=== PATIENT | female | born 1990 | race African-American/Black ===

== ENCOUNTER 2016-10-08 00:40 | Emergency (ER) | payer OTHER ==
[~2016-10-08] VITALS: Ht 167.6 cm; Wt 110.0 kg
[~2016-10-08 00:40] MED LIST: ACET325T33 PO; ALBU8.5H3 INH; AZIT250T94 PO; BEN25 PO; CEPH-443 PO; CIPR500T4 PO; DOCU-144 PO; GUAI120S26 PO; IBUP800T25 PO; NITR-58 PO; PRED20TA PO; PRENAT PO
[2016-10-08 00:43] VITALS: Ht 167.6 cm; Wt 110.0 kg
--- NOTE | 2016-10-08 01:38 | ERD ---
ER Documentation Chief Complaint Date/Time DATE: 10/08/16 TIME: 01:36 Chief Complaint chest pain x 4 days increases with movement and breath HPI 26-year-old female presents to emergency department for complaint of left-sided chest pain for 4 days, patient describes it as sharp pain, 6/10 scale, is worse with taking a deep breath. Patient is a smoker. Patient denies any dizziness or shortness of breath. Patient denies any dyspnea on exertion or dyspnea on lying down. Patient denies any palpitations or irregular heartbeat. Patient denies any cough or wheezing. ROS All systems reviewed and are negative except as per history of present illness. Medications Home Meds Active Scripts Nitrofurantoin Monohyd Macrocr* (Macrobid*) 100 Mg Capsr, 100 MG PO BID for 7 Days, CAP Prov:WILMA RICHARDSON PA-C 05/02/16 Ciprofloxacin Hcl* (Ciprofloxacin Hcl*) 500 Mg Tablet, 500 MG PO BID for 3 Days , TAB Prov:RENNY VOGEL 03/18/16 Acetaminophen* (Tylenol*) 325 Mg Tablet, 2 TAB PO Q8 Y for PAIN AND OR ELEVATED TEMP, #30 TAB Prov:RHONDA STEVENS PA-C 03/13/16 Albuterol Sulfate* (Proair HFA*) 8.5 Gm Hfa.aer.ad, 2 PUFF INH Q4, #1 INHALER Prov:WILMA RICHARDSON PA-C 03/05/16 Prednisone* (Prednisone*) 20 Mg Tab, 40 MG PO DAILY for 4 Days, TAB Prov:WILMA RICHARDSON PA-C 03/05/16 Diphenhydramine Hcl* (Benadryl*) 25 Mg Cap, 25 MG PO QHS, #30 CAP Prov:RHONDA STEVENS PA-C 03/04/16 Ibuprofen* (Motrin*) 800 Mg Tab, 800 MG PO Q6, #30 TAB Prov:RHONDA STEVENS PA-C 03/04/16 Wnpiiaxjcju-F-Wmryegyaot Hb* (Guaifenesin* DM Syrup) 120 Ml Syrup, 10 ML PO Q4H Y for COUGH, #120 ML Prov:RHONDA STEVENS PA-C 03/04/16 Azithromycin* (Zithromax*) 250 Mg Tablet, 250 MG PO .ZPACK DIRECTED, #6 TAB TAKE 500 MG (2 TABS) THE FIRST DAY THEN 250 MG (1 TAB) DAYS 2-5 Prov:RHONDA STEVENS PA-C 03/04/16 Docusate Sodium* (Colace*) 100 Mg Capsule, 100 MG PO TID, #30 CAP Prov:RADHA ENRIQUEZ PA-C 08/07/15 Cephalexin* (Keflex*) 500 Mg Capsule, 500 MG PO QID for 7 Days, CAP Prov:RADHA ENRIQUEZ PA-C 08/07/15 Reported Medications Multivit/Min/Fol Ac/Iron/Pren* ( S*) 1 Tab Tab, 1 TAB PO DAILY, TAB 05/04/15 Allergies Allergies: Coded Allergies: No Known Allergy (Unverified , 05/02/16) PMhx/Soc Medical and Surgical Hx: pt denies Medical Hx, pt denies Surgical Hx History of Surgery: No Anesthesia Reaction: No Hx Neurological Disorder: No Hx Respiratory Disorders: No Hx Cardiac Disorders: No Hx Psychiatric Problems: No Hx Miscellaneous Medical Probl: No Hx Alcohol Use: No Hx Substance Use: No Hx Tobacco Use: Yes (1/2 ppd) Smoking Status: Current every day smoker FmHx Family History: No coronary disease, No diabetes, No other Physical Exam Vitals Vital Signs Date Time Temp Pulse Resp B/P Pulse Ox O2 Delivery O2 Flow Rate FiO2 10/08/16 00:43 97.7 94 20 136/86 98 Physical Exam GENERAL: The patient is well developed and appropriate for usual state of health, in no apparent distress. CHEST: Clear to auscultation bilaterally. There are no rales, wheezes or rhonchi. HEART: Regular rate and rhythm. No murmurs, clicks, rubs or gallops. No S3 or S4. ABDOMEN: Soft, nontender and nondistended. Good bowel sounds. No rebound or guarding. No gross peritonitis. No gross organomegaly or masses. No Becker sign or McBurney point tenderness. BACK: No midline or flank tenderness. EXTREMITIES: Equal pulses bilaterally. There is no peripheral clubbing, cyanosis or edema. No focal swelling or erythema. Full range of motion. Grossly neurovascularly intact. NEURO: Alert and oriented. Cranial nerves 2-12 intact. Motor strength in all 4 extremities with 5/5 strength. Sensation grossly intact. Normal speech and gait. SKIN: There is no apparent rash or petechia. The skin is warm and dry. HEMATOLOGIC AND LYMPHATIC: There is no evidence of excessive bruising or lymphedema. No gross cervical, axillary, or inguinal lymphadenopathy. Result Diagram: 10/08/16 0140 10/08/16 0140 Results 24 hrs Laboratory Tests Test 10/08/16 01:40 White Blood Count 9.310^3/ul Red Blood Count 4.2210^6/ul Hemoglobin 12.6g/dl Hematocrit 34.5% Mean Corpuscular Volume 81.8fl Mean Corpuscular Hemoglobin 29.9pg Mean Corpuscular Hemoglobin Concent 36.5g/dl Red Cell Distribution Width 13.2% Platelet Count 01267^3/UL Mean Platelet Volume 11.1fl Neutrophils % 55.7% Lymphocytes % 28.9% Monocytes % 8.2% Eosinophils % 5.9% Basophils % 1.0% Nucleated Red Blood Cells % 0.0/100WBC Neutrophils # 5.210^3/ul Lymphocytes # 2.710^3/ul Monocytes # 0.810^3/ul Eosinophils # 0.610^3/ul Basophils # 0.110^3/ul Nucleated Red Blood Cells # 0.010^3/ul D-Dimer 1725.82ng/ml D-Dimer Comment Sodium Level 142mmol/L Potassium Level 3.5mmol/L Chloride Level 103mmol/L Carbon Dioxide Level 26mmol/L Anion Gap 17 Blood Urea Nitrogen 14mg/dl Creatinine 0.70mg/dl Glucose Level 101mg/dl Calcium Level 9.4mg/dl Total Bilirubin 0.2mg/dl Direct Bilirubin 0.00mg/dl Indirect Bilirubin 0.2mg/dl Aspartate Amino Transf (AST/SGOT) 18IU/L Alanine Aminotransferase (ALT/SGPT) 20IU/L Alkaline Phosphatase 145IU/L Troponin I < 0.012ng/ml Total Protein 7.6g/dl Albumin 4.2g/dl Globulin 3.40g/dl Albumin/Globulin Ratio 1.23 Current Medications Medications (Trade) Dose Ordered Sig/Erika Route PRN Reason Start Time Stop Time Status Last Admin Dose Admin Sodium Chloride (NS) 100 ml @ ud STK-MED ONCE .ROUTE 10/08/16 04:11 10/08/16 04:12 DC 10/08/16 04:29 Iohexol (Omnipaque 300mg/ ml) 150 ml STK-MED ONCE .ROUTE 10/08/16 04:11 10/08/16 04:12 DC 10/08/16 04:29 EKG was done, read by me and is normal sinus rhythm at a rate of 78, normal axis ,w/ nonspecific T-wave abnormality but no other changes indicates any cardiac emergencies at this time. Patient's EKG was also reviewed by . Impression: no acute findings on EKG PROCEDURE: XR Chest. CLINICAL INDICATION: Chest pain. TECHNIQUE: Single frontal chest x-ray. COMPARISON: 05/02/2016 FINDINGS: The cardiomediastinal silhouette is unremarkable. The lungs are clear. No focal infiltrate is seen. There is no pleural effusion. There is no pneumothorax. The osseous structures are unremarkable. IMPRESSION: 1. No active disease. RPTAT: HMVK .Chai King MD, MD Date Time Electronically viewed and signed by .Chai King MD, on 10/08/2016 02:24 .K/ CC: CELESTINO YATES NP PROCEDURE: CT angiogram chest. CLINICAL INDICATION: Shortness of breath. TECHNIQUE: CT angiogram of the chest was performed utilizing axial images with reconstructions in sagittal and coronal planes following the intravenous administration of 100 cc Omnipaque 350 contrast. The administered radiation dose is CTDI 19 mGy, DLP 747 mGy-cm. COMPARISON: No pertinent prior examinations are submitted for comparison. FINDINGS: Pulmonary angiogram: The pulmonary arteries are adequately opacified to the level of the segmental pulmonary artery branches. There is minimal respiratory motion artifact. There is no evidence of pulmonary embolus. Aortogram: There is no evidence of aortic dissection or aneurysm. Major branches of the aorta are patent. Chest: There is some mild atelectasis at the left lung base. No pleural effusions are seen. The tracheobronchial tree is unremarkable. The heart is normal in size. No pericardial effusion is seen. There is no evidence of mediastinal or hilar adenopathy. Visualized Upper abdomen: Unremarkable. Osseous structures: There is mild dextroscoliosis of the thoracic spine. IMPRESSION: No evidence of pulmonary embolus. RPTAT: HIKT .Husam De Paz MD, Date Time Electronically viewed and signed by .Husam De Paz MD, on 10/08/2016 04:41 .T/ CC: CELESTINO YATES NP Procedures/MDM Medical Decision Making: No symptoms such as a nonspecific at this time, most likely musculoskeletal pain. There is low suspicion for cardiopulmonary emergencies at this time. Patient has low risk factors. EKG is normal, there is no changes in the EKG that indicates cardiac emergencies. Chest X-ray does not show cardiopulmonary emergencies at this time. There is low suspicion for aortic aneurysm, myocardial infarction, pneumothorax, pleural effusion, pulmonary embolism, or any other cardiopulmonary emergencies at this time. Cardiac markers are normal. D-dimer was elevated the CT angiogram chest does not show any pulmonary embolism. Patient was given a Rx for ibuprofen, tramadol , is advised to follow-up with primary care doctor in 1-2 days, advised to follow-up with senior mobile developer specialist. Patient is advised to return to emergency department for any worsening symptoms Departure Diagnosis: Primary Impression: Atypical chest pain Condition: Stable Patient Instructions: Chest Pain, Uncertain Cause Additional Instructions: Patient was given a Rx for ibuprofen, tramadol, is advised to follow-up with primary care doctor in 1-2 days, advised to follow-up with senior mobile developer specialist. Patient is advised to return to emergency department for any worsening symptoms CELESTINO YATES NP Oct 08, 2016 01:38
--- NOTE | 2016-10-08 02:24 | RADRPT ---
PROCEDURE: XR Chest. CLINICAL INDICATION: Chest pain. TECHNIQUE: Single frontal chest x-ray. COMPARISON: 05/02/2016 FINDINGS: The cardiomediastinal silhouette is unremarkable. The lungs are clear. No focal infiltrate is seen. There is no pleural effusion. There is no pneumothorax. The osseous structures are unremarkable. IMPRESSION: 1. No active disease. RPTAT: HMVK .Chai King MD, MD Date Time Electronically viewed and signed by .Chai King MD, on 10/08/2016 02:24 .K/
[2016-10-08 02:50] LABS: ADD SCAN DIFF NO
[2016-10-08 02:53] LABS: BASOPHIL # 0.1 10^3/ul (0.0-0.1); EOSINOPHILS # 0.6 10^3/ul (0.0-0.5); EOSINOPHILS % 5.9 % (0.0-7.0); HEMATOCRIT 34.5 % (37.0-47.0); HEMOGLOBIN 12.6 g/dl (12.0-16.0); LYMPHOCYTES # 2.7 10^3/ul (0.8-2.9); LYMPHOCYTES % 28.9 % (15.0-51.0); MEAN CORPUSCULAR HEMOGLOBIN 29.9 pg (29.0-33.0); MEAN CORPUSCULAR HGB CONC 36.5 g/dl (32.0-37.0); MEAN CORPUSCULAR VOLUME 81.8 fl (82.0-101.0); MEAN PLATELET VOLUME 11.1 fl (7.4-10.4); MONOCYTE # 0.8 10^3/ul (0.3-0.9); MONOCYTES % 8.2 % (0.0-11.0); NEUTROPHIL # 5.2 10^3/ul (1.6-7.5); NEUTROPHILS % 55.7 % (39.0-77.0); PLATELET COUNT 422 10^3/UL (140-415); RED BLOOD COUNT 4.22 10^6/ul (4.20-5.40); RED CELL DISTRIBUTION WIDTH 13.2 % (11.5-14.5); WHITE BLOOD COUNT 9.3 10^3/ul (4.8-10.8)
[2016-10-08 03:04] LABS: POTASSIUM 3.5 mmol/L (3.5-5.1); SODIUM 142 mmol/L (135-144)
[2016-10-08 03:07] LABS: ALANINE AMINOTRANSFERASE 20 IU/L (13-69); ALKALINE PHOSPHATASE 145 IU/L (42-121); ASPARTATE AMINO TRANSFERASE 18 IU/L (15-46); BILIRUBIN,INDIRECT 0.2 mg/dl (0-1.1); BILIRUBIN,TOTAL 0.2 mg/dl (0.2-1.3); BLOOD UREA NITROGEN 14 mg/dl (7-20); CARBON DIOXIDE 26 mmol/L (21-31); GLUCOSE 101 mg/dl (70-220); TOTAL PROTEIN 7.6 g/dl (6.1-8.1)
[2016-10-08 03:08] LABS: CALCIUM 9.4 mg/dl (8.4-10.2)
[2016-10-08 03:23] LABS: D-DIMER 1725.82 ng/ml (<460)
[2016-10-08 03:24] LABS: TROPONIN-I < 0.012 ng/ml (0.00-0.12)
[2016-10-08 03:42] LABS: ALBUMIN 4.2 g/dl (3.3-4.9); ALBUMIN/GLOBULIN RATIO 1.23; ANION GAP 17 (8-16); CHLORIDE 103 mmol/L (97-110)
[2016-10-08] MEDS ORDERED: SOD CHLORIDE 0.9% 100 ML ONE (04:11)
[2016-10-08] MEDS ORDERED: IOHEXOL 300MG/ML 150 ML BTL ONE (04:11)
--- NOTE | 2016-10-08 04:42 | RADRPT ---
PROCEDURE: CT angiogram chest. CLINICAL INDICATION: Shortness of breath. TECHNIQUE: CT angiogram of the chest was performed utilizing axial images with reconstructions in sagittal and coronal planes following the intravenous administration of 100 cc Omnipaque 350 contras t. The administered radiation dose is CTDI 19 mGy, DLP 747 mGy-cm. COMPARISON: No pertinent prior examinations are submitted for comparison. FINDINGS: Pulmonary angiogram: The pulmonary arteries are adequately opacified to the level of the segmental pulmonary artery branches. There is minimal respiratory motion artifact. There is no evidence of p ulmonary embolus. Aortogram: There is no evidence of aortic dissection or aneurysm. Major branches of the aorta are patent. Chest: There is some mild atelectasis at the left lung base. No pleural effusions are seen. The tracheobr onchial tree is unremarkable. The heart is normal in size. No pericardial effusion is seen. There is no evidence of mediastinal or hilar adenopathy. Visualized Upper abdomen: Unremarkable. Osseous structures: There is mild dextroscoliosis of the thoracic spine. IMPRESSION: No evidence of pulmonary embolus. RPTAT: HIKT .Husam De Paz MD, Date Time Electronically viewed and signed by .Husam De Paz MD, on 10/08/2016 04:41 .T/
[2016-10-08] MEDS ORDERED: TRAM50TA2 PO (04:48)
[2016-10-08] MEDS ORDERED: IBUP-1542 PO (04:48)
[2016-10-08 05:07] VITALS: BP 124/80; PULSE 87; RESP 20; TEMP 98.1
== END 2016-10-08 05:14 | disposition home or self-care (01) ==
LOC: FTE 00:40
DX: R07.89 Other chest pain (principal)
CPT/HCPCS: 71010; 71275; 80053; 84484; 85025; 85378; 93005; Q9967; Z7610; 36415